=== PATIENT | male | born 1970 | race Caucasian/White ===

== ENCOUNTER → 2018-03-28 | Outpatient (CLI) | payer BC ==
--- NOTE | 2018-03-28 09:50 | XR ---
EXAMINATION TYPE: XR KUB DATE OF EXAM: 03/28/2018 COMPARISON: NONE HISTORY: Pain TECHNIQUE: One view abdominal series FINDINGS: The osseous structures are intact. The bowel gas pattern is nonspecific. Lung bases are clear. Find ings suggest a bone island involving the right femoral neck. Benign calcifications pelvis. Some of wh ich appear to be related to the prostate. IMPRESSION: 1. Nonspecific abdomen.
== END | disposition home or self-care (01) ==
LOC: RADXRMAIN 09:13
PROVIDERS: ATTEND Urology
DX: N23 Unspecified renal colic (principal)
CPT/HCPCS: 74018

== ENCOUNTER 2020-02-07 14:00 | Emergency (ER) | payer BC ==
[2020-02-07 14:30] VITALS: BP 154/113; PULSE 73; RESP 18; TEMP 98.1
[2020-02-07] MEDS ORDERED: DIPH,PERTUS(ACELL)TETVAC-LF 0.5 ML VIAL IM ONE (14:30)
[2020-02-07] MEDS ORDERED: LIDOCAINE 1% INJ 10MG/ML (20 ML MDV) SQ ONE (14:30)
[2020-02-07] MEDS ORDERED: GELATIN SPONGE,ABSORB (SMALL) 1 EACH SPONGE TOPICAL STA (14:37)
[2020-02-07] MEDS ORDERED: HYDROcodone/APAP 5-325MG 1 EACH TAB PO STA (14:38)
[2020-02-07] MEDS ORDERED: SODIUM CHLORIDE 0.9% IRRIG 1,000 ML BTL IRRIGATION STA (14:38)
--- NOTE | 2020-02-07 14:50 | ED ---
General Adult HPI - General Chief complaint: Wound/Laceration Stated complaint: Finger laceration Time Seen by Provider: 02/07/20 14:30 Source: patient, RN notes reviewed Mode of arrival: ambulatory Limitations: no limitations - History of Present Illness Initial comments: 49-year-old male presents to the emergency determine for a chief complaint of laceration. Patient was using a table saw when he cut his left index finger. Patient states he has previously cut the finger as well with a table saw. Patient states he didn't look at it but saw that there was blood so rest of the hospital. Patient states he was has numbness in that distal fingertip secondary to previous laceration. He denies any other injuries. Tetanus is not up-to-date.Patient has no other complaints at this time including shortness of breath, chest pain, abdominal pain, nausea or vomiting, headache, or visual changes. - Related Data Home Medications Medication Instructions Recorded Confirmed Ibuprofen [Motrin] 600 mg PO BID-W/MEALS PRN 10/17/15 10/17/15 diphenhydrAMINE [Benadryl] 25 mg PO HS PRN 10/17/15 10/17/15 Previous Rx's Medication Instructions Recorded Cephalexin [Keflex] 500 mg PO Q6HR 10 Days #40 cap 02/07/20 Allergies Allergy/AdvReac Type Severity Reaction Status Date / Time latex Allergy Rash/Hives Verified 02/07/20 14:29 prednisone AdvReac Confusion Verified 02/07/20 14:29 Review of Systems ROS Statement: Those systems with pertinent positive or pertinent negative responses have been documented in the HPI. ROS Other: All systems not noted in ROS Statement are negative. Past Medical History Past Medical History: No Reported History History of Any Multi-Drug Resistant Organisms: None Reported Past Surgical History: Adenoidectomy, Tonsillectomy Additional Past Surgical History / Comment(s): uvula removal, sinus surgery, cyst removed from fingers, vasectomy, Past Psychological History: No Psychological Hx Reported Smoking Status: Never smoker Past Alcohol Use History: None Reported Past Drug Use History: None Reported General Exam Limitations: no limitations General appearance: alert, in no apparent distress Head exam: Present: atraumatic, normocephalic, normal inspection Eye exam: Present: normal appearance, PERRL, EOMI. Absent: scleral icterus, conjunctival injection, periorbital swelling ENT exam: Present: normal exam, mucous membranes moist Neck exam: Present: normal inspection, full ROM. Absent: tenderness, meningismus, lymphadenopathy Respiratory exam: Present: normal lung sounds bilaterally. Absent: respiratory distress, wheezes, rales, rhonchi, stridor Cardiovascular Exam: Present: regular rate, normal rhythm, normal heart sounds. Absent: systolic murmur, diastolic murmur, rubs, gallop, clicks Extremities exam: Present: other (Superficial type laceration noted to the dorsum of the distal fingertip left second digit involving the nail. Capillary refill less than 2 seconds in his finger. Full range of motion. There is no suturing required.) Course Vital Signs 02/07/20 14:25 Temperature 98.1 F Pulse Rate 73 Respiratory 18 Rate Blood Pressure 154/113 O2 Sat by Pulse 97 Oximetry Medical Decision Making - Medical Decision Making X-ray shows small piece of Court x-ray been removed on the oblique view. Otherwise no acute osseous abnormality noted. Wound is more avulsion and then laceration. Gelfoam was applied after it was irrigated thoroughly with saline pressure irrigation. It was secured with Steri-Strips. Patient will follow-up with orthopedics and take antibiotics. He will return for any worsening symptoms. Disposition Clinical Impression: Laceration Disposition: HOME SELF-CARE Condition: Good Instructions (If sedation given, give patient instructions): Laceration (ED), Steristrips (ED) Additional Instructions: Please keep the area clean. Please keep area dry. After a 2-3 days you can cut the Steri-Strips and let the Gelfoam fall off on its own. If it does not come off soak it in water. Take antibiotics as directed. 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 Return to the emergency department for any worsening symptoms. Otherwise follow-up with primary care for possible open fracture Prescriptions: Cephalexin [Keflex] 500 mg PO Q6HR 10 Days #40 cap Is patient prescribed a controlled substance at d/c from ED?: No Referrals: Radha Solo MD [Primary Care Provider] - 1-2 days Estrellita Ramirez DO [Doctor of Osteopathic Medicine] - 1-2 days Time of Disposition: 15:33
--- NOTE | 2020-02-07 15:00 | XR ---
EXAMINATION TYPE: XR finger LT DATE OF EXAM: 02/07/2020 COMPARISON: None HISTORY: Laceration from table saw TECHNIQUE: Three-view left index finger FINDINGS: Tiny chip the distal tuft is not excluded. Soft tissue injury is evident at the distal inde x finger. Additional areas suspicious for fracture are not identified. Joint spaces are preserved. No radiopaqu e foreign bodies are identified. IMPRESSION: 1. On the oblique view small piece of cortex may have been removed at the soft tissue injury. Otherw ise, no acute osseous abnormality is identified.
[2020-02-07] MEDS ORDERED: CEPHALEXIN 500MG STARTER PACK 4 CAP BTL PO STA (15:33)
== END 2020-02-07 15:50 | disposition home or self-care (01) ==
LOC: EC 14:00
DX: S61.311A Laceration without foreign body of left index finger with damage to nail, initial encounter (principal); Z23 Encounter for immunization; Z91.040 Latex allergy status; Z88.8 Allergy status to other drugs, medicaments and biological substances; W31.2XXA Contact with powered woodworking and forming machines, initial encounter
CPT/HCPCS: 90471; 90715; 99283

== ENCOUNTER → 2021-03-03 | Outpatient (CLI) | payer BC ==
[2021-03-03 17:33] LABS: ALT 39 U/L (10-49); AST 28 U/L (14-35); African American GFR (CKD) 119.9 (60.0-200.0); Alkaline Phosphatase 75 U/L (41-126); Calcium 8.4 mg/dL (8.7-10.3); Carbon Dioxide 27.5 mmol/L (21.6-31.8); Chloride 108 mmol/L (96-109); Cholesterol 176 mg/dL (0-200); Glucose 158 mg/dL (70-110); LDL Cholesterol,Calculated 86.6 mg/dL (0.0-131.0); Non-African American GFR(CKD) 103.4 (60.0-200.0); Potassium 4.3 mmol/L (3.5-5.5); Rheumatoid Factor, Qnt <4 IU/mL (0-13); Sodium 142 mmol/L (135-145); Total Bilirubin 0.6 mg/dL (0.3-1.2); Total Protein 6.2 g/dL (6.2-8.2)
[2021-03-03 17:46] LABS: Basophils # (A) 0.05 X 10*3/uL (0.00-0.10); Basophils % (A) 1.2 %; Eosinophils # (A) 0.13 X 10*3/uL (0.04-0.35); HCT 45.9 % (39.6-50.0); HGB 15.2 g/dL (13.0-17.0); Lymphocytes # (A) 1.76 X 10*3/uL (0.90-5.00); Lymphocytes % (A) 40.6 %; MCH 30.8 pg (27.0-32.0); MCHC 33.1 g/dL (32.0-37.0); MCV 93.1 fL (80.0-97.0); Mean Platelet Volume 9.3 fL (9.5-12.2); Monocytes # (A) 0.51 X 10*3/uL (0.20-1.00); Monocytes % (A) 11.8 %; Neutrophils # (A) 1.87 X 10*3/uL (1.80-7.70); Neutrophils % (A) 43.2 %; Platelet Count 205 X 10*3/uL (140-440); RBC 4.93 X 10*6/uL (4.40-5.60); RDW 13.1 % (11.5-14.5); WBC 4.33 X 10*3/uL (4.50-10.00)
[2021-03-03 21:28] LABS: Hemoglobin A1C 5.8 % (4.0-6.0)
== END | disposition home or self-care (01) ==
LOC: LABWHC1 09:10
PROVIDERS: ATTEND Internal Medicine
DX: E78.5 Hyperlipidemia, unspecified (principal); I10 Essential (primary) hypertension
CPT/HCPCS: 36415; 80053; 80061; 83036; 84439; 84443; 85025; 86431

== ENCOUNTER → 2022-02-24 | Outpatient (CLI) | payer BC ==
[2022-02-24 16:20] LABS: ALT 46 U/L (10-49); AST 29 U/L (14-35); African American GFR (CKD) 95.2 (60.0-200.0); Albumin 4.7 g/dL (3.8-4.9); Albumin/Globulin Ratio 1.84 (1.60-3.17); Alkaline Phosphatase 88 U/L (41-126); BUN/Creat Ratio 19.52 Ratio (12.00-20.00); Blood Urea Nitrogen 20.3 mg/dL (9.0-27.0); Carbon Dioxide 22.9 mmol/L (20.0-27.5); Chloride 100 mmol/L (96-109); Chol/HDL Ratio 5.32 Ratio; Globulin 2.5 g/dL (1.6-3.3); Glucose 133 mg/dL (70-110); LDL Cholesterol,Calculated 111.6 mg/dL (0.0-131.0); Magnesium 2.2 mg/dL (1.5-2.4); Non-African American GFR(CKD) 82.2 (60.0-200.0); Potassium 4.1 mmol/L (3.5-5.5); Sodium 137 mmol/L (135-145); Total Protein 7.2 g/dL (6.2-8.2)
== END | disposition home or self-care (01) ==
LOC: LABWHC1 10:33
PROVIDERS: ATTEND Internal Medicine Interventional Cardiology
DX: I10 Essential (primary) hypertension (principal); E78.2 Mixed hyperlipidemia
CPT/HCPCS: 36415; 80053; 80061; 83735; 84443

== ENCOUNTER → 2024-09-25 | Outpatient (CLI) | payer OTHER ==
--- NOTE | 2024-09-26 08:32 | CT ---
EXAMINATION TYPE: CT sinus wo con DATE OF EXAM: 09/25/2024 5:13 PM COMPARISON: None. CLINICAL INDICATION: Male, 54 years old with history of J01.11 ACUTE RECURRENT FRONTAL SINUSITIS, Sandrita athing and sinus issues x6 months. TECHNIQUE: The paranasal sinuses are examined in the axial plane at 2 mm thick sections. Reconstruct ed images in the coronal plane were obtained. Contrast used: mL of , (none if empty) Oral contrast used: (none if empty) CT DLP: 220 mGycm, Automated exposure control for dose reduction was used. FINDINGS: Air-fluid levels are within the bilateral maxillary sinuses. There is opacification through the ethmo id air cells. Air-fluid levels are within the sphenoid sinuses mucosal thickening and air-fluid level s are within the frontal sinuses. The septum is evaluated. There is septal deviation to the right. The ostiomeatal units are obstructed Mastoid air cells within the field of view are clear. IMPRESSION: 1. Multiple air-fluid levels and opacification throughout the paranasal sinuses. Correlate for pansi nusitis [facility], Workstation: [facility], 09/26/2024 8:30 AM
== END | disposition home or self-care (01) ==
LOC: RADCTMAIN 16:43
PROVIDERS: ATTEND Internal Medicine
DX: J01.11 Acute recurrent frontal sinusitis (principal); R91.8 Other nonspecific abnormal finding of lung field
CPT/HCPCS: 70486

== ENCOUNTER 2024-10-06 07:50 | Day surgery (SDC) | payer BC, OTHER ==
[2024-09-29 08:50] VITALS: BMI 36.3
[2024-10-06 08:13] VITALS: TEMP 97.6
[2024-10-06] MEDS: LACTATED RINGERS 1,000 ML IV SCH (08:19)
[2024-10-06] MEDS: IV FLUID CONTINUATION 1,000 ML IV ONE (08:19)
[2024-10-06] MEDS ORDERED: PROPOFOL 10 MG/ML 20 ML VIAL IV ONE (08:46)
--- NOTE | 2024-10-06 08:59 | P.PCN ---
Date of Procedure: 10/06/24 Procedure(s) Performed: BRIEF HISTORY: Patient is a 54-year-old pleasant white male scheduled for an elective colonoscopy as a part of screening for colon cancer. PROCEDURE PERFORMED: Colonoscopy. PREOPERATIVE DIAGNOSIS: Screening for colon cancer. IV sedation per Anesthesia. PROCEDURE: After informed consent was obtained, the patient, was brought into the endoscopy unit. IV sedation was administered by Anesthesia under continuous monitoring. Digital rectal examination was normal. Initially the Olympus CF-160 flexible video colonoscope was then inserted in the rectum, gradually advanced into the cecum without any difficulty. Careful examination was performed as the scope was gradually being withdrawn. Ileocecal valve and the appendiceal orifice were visualized and appeared normal. Prep was excellent. Mucosa of the cecum, ascending colon, transverse colon, descending colon, sigmoid colon, and rectum appeared normal. Retroflexion was performed in the rectum and no lesions were seen. The patient tolerated the procedure well. IMPRESSION: Normal-appearing colon from rectum to cecum no evidence of colorectal neoplasia. RECOMMENDATIONS: Findings of this examination were discussed with the patient as well as his family.. He was advised to have repeat screening colonoscopy in 10 years.
[2024-10-06 09:07] VITALS: RESP 16
[2024-10-06 09:22] VITALS: BP 138/91; PULSE 62
== END 2024-10-06 09:34 | disposition home or self-care (01) ==
LOC: ORWHC2ENDO 07:50
PROVIDERS: ATTEND Internal Medicine Gastroenterology
DX: Z12.11 Encounter for screening for malignant neoplasm of colon (principal)
CPT/HCPCS: 45378; J2704

== ENCOUNTER → 2024-11-03 | Outpatient (CLI) | payer OTHER ==
[2024-11-03 10:52] LABS: Basophils # (A) 0.1 k/uL (0-0.2); Basophils % (A) 1 %; Eosinophils # (A) 0.2 k/uL (0-0.7); Eosinophils % (A) 5 %; HCT 44.5 % (39.0-53.0); HGB 14.3 gm/dL (13.0-17.5); Lymphocytes # (A) 1.4 k/uL (1.0-4.8); Lymphocytes % (A) 29 %; MCH 30.4 pg (25.0-35.0); MCHC 32.1 g/dL (31.0-37.0); MCV 94.5 fL (80.0-100.0); Mean Platelet Volume 6.7; Monocytes # (A) 0.4 k/uL (0-1.0); Monocytes % (A) 9 %; Neutrophils # (A) 2.5 k/uL (1.3-7.7); Neutrophils % (A) 53 %; Platelet Count 243 k/uL (150-450); RBC 4.71 m/uL (4.30-5.90); RDW 13.4 % (11.5-15.5); WBC 4.7 k/uL (3.8-10.6)
[2024-11-03 11:11] LABS: Total Eosinophil Count 226 #EOS/uL (150-300)
[2024-11-03 19:41] LABS: Alternaria alternata IgE <0.10 kU/L; Aspergillus fumagatus IgE <0.10 kU/L; Cat Epith & Dander IgE 7.17 kU/L; Cladosporian herbarum IgE <0.10 kU/L; Cockroach IgE 0.28 kU/L; Dog Dander IgE 0.81 kU/L; Elm IgE 0.74 kU/L; Maple (Box Elder) IgE 1.26 kU/L; Oak IgE 1.29 kU/L; Ragweed,Common IgE 4.41 kU/L
== END | disposition home or self-care (01) ==
LOC: LABWHC1 10:07
PROVIDERS: ATTEND Internal Medicine
DX: J45.20 Mild intermittent asthma, uncomplicated (principal)
CPT/HCPCS: 36415; 82785; 85008; 85025; 86003

== ENCOUNTER 2024-12-09 08:48 | Day surgery (SDC) | payer OTHER ==
[2024-12-07 10:55] VITALS: BMI 36.5
[~2024-12-09 08:48] MED LIST: LIDOCAINE 1% (10MG/ML) FOR IV START INTRADERMA PRN; droPERidol 2.5 MG/ML VIAL IVP ONE
[2024-12-09] MEDS: IV FLUID CONTINUATION 1,000 ML IV ONE ×2 (09:11→12:12)
[2024-12-09] MEDS: FAMOTIDINE 20 MG/2 ML VIAL IV PRN (09:32)
[2024-12-09] MEDS: ONDANSETRON 4 MG/2 ML VIAL IVP ONE (09:32)
[2024-12-09] MEDS: LACTATED RINGERS 1,000 ML IV SCH (09:32)
[2024-12-09] MEDS: OXYMETAZOLINE 0.05% NASL SPRAY 1 SPRAY BOTTLE EA NOSTRIL PRN (09:33)
[2024-12-09] MEDS: DEXAMETHASONE SOD PHOSPHATE 4 MG/ML 1 ML VIAL IV ONE (09:33)
[2024-12-09] MEDS ORDERED: ePHEDrine 50 MG/ML 1 ML VIAL ONE (09:45)
[2024-12-09] MEDS ORDERED: ALBUTEROL HFA INHALER INHALATION ONE (09:45)
[2024-12-09] MEDS ORDERED: PROPOFOL 10 MG/ML 20 ML VIAL IV ONE (09:45)
[2024-12-09] MEDS ORDERED: SUCCINYLCHOLINE CHLORIDE 200 MG/10 ML VIAL IV ONE (09:45)
[2024-12-09] MEDS ORDERED: MIDAZOLAM 2 MG/2 ML VIAL ONE (09:45)
[2024-12-09] MEDS ORDERED: LIDOCAINE 1% INJ 10MG/ML (20 ML MDV) ONE (09:45)
[2024-12-09] MEDS ORDERED: PHENYLEPHRINE 10 MG/ML VIAL ONE (09:45)
[2024-12-09] MEDS ORDERED: fentaNYL (PF) 50 MCG/ML 2 ML AMP ONE (09:45)
[2024-12-09] MEDS: ceFAZolin 3 GM in SODIUM CHLORIDE 0.9% 100 ML IVPB PRN (09:48)
[2024-12-09] MEDS: LIDOCAINE 1%-EPI 1:100,000 20 ML VIAL SQ ONE (10:00)
--- NOTE | 2024-12-09 11:02 | P.OP ---
Date of Procedure: 12/09/24 Preoperative Diagnosis: chronic sinusitis Inferior turbinate hypertrophy Deviated septum Postoperative Diagnosis: same Procedure(s) Performed: septoplasty Outfracture and submucous resection inferior turbinates Bilateral endoscopic sinus surgery including bilateral maxillary antrostomy with removal of tissue from the maxillary sinuses, bilateral anterior posterior ethmoidectomy with sphenoidotomy and exploration and bilateral frontal sinusotomy with exploration Anesthesia: OLU Surgeon: Raphael Foss Estimated Blood Loss (ml): 10 Pathology: other (sinus contents) Condition: stable Disposition: PACU Indications for Procedure: is a 54-year-old white male whose had difficulties with chronic and recurrent sinusitis for several months with only brief improvement with antibiotic and steroids- CT showed diffuse chronic sinusitis Operative Findings: nasal septum deviated to the right with inferior turbinate hypertrophy bilaterally. There was extensive inflammation throughout the sinuses with purulence in both maxillary sinuses mainly the left which was cultured ostium to complexes were completely obstructed. There was mucosal thickening throughout the ethmoid sinuses and more mildly in the frontal and sphenoid sinuses Description of Procedure: The patient was brought into the operative suite and placed in a supine position. The patient underwent induction of general anesthesia with oral endotracheal intubation without difficulty. The patient was prepped and draped in the usual aseptic fashion with the orbits in the operating field for monitoring to the case and the computed tomography scan was on the computer screen for review throughout the case. 1% lidocaine with 1 :100,000 epinephrine was infused submucosally into both sides of the nasal septum as well as the lateral nasal wall and anterior tips of the middle turbinates. While this was taking vasoconstrictive effect the inferior turbinates were infractured with [place] elevator and partial submucous resection of the inferior turbinates was performed with a portion of the submucosal soft tissue and the inferior turbinate bone removed with Coblation device. The inferior turbinates were then outfractured with the [place] elevator. A left hemitransfixion incision was then made with the mucoperichondrial and mucoperiosteal flap on the left elevated. The bony cartilaginous junction was disarticulated and the mucoperiosteal flap on the right was elevated. Bony nasal septal deformities were removed with [place]kay forceps and an inferior cartilaginous strip was removed leaving a full 1.5 cm caudal strut. Checking intranasally this corrected the nasoseptal deformities and the hemitransfixion incision was closed with a running 4-0 chromic suture. Full 0° endoscopic examination is performed bilaterally. Beginning on the left, the middle turbinate was medialized. The maxillary ostium was located with a ballpoint probe and an infundibulotomy was performed followed by uncinectomy. The maxillary antrostomy was enlarged at the expense of the anterior and posterior fontanelle taking care anteriorly not to injure the lacrimal bone. The maxillary sinus was evaluated with 30 and 70° endoscope .[Abnormal appearing tissue was removed from the maxillary sinus]. Anterior and posterior ethmoidectomy were then performed from anterior to posterior to the level of the skull base. The roof of the anterior ethmoid air cells were then cleaned from posterior to anterior using up-biting Blakesley forceps. the frontal sinus was then opened with frontal sinusotomy utilizing 30 and 70 endoscope with curved suction and giraffe forceps. The frontal sinus was then explored with 30° endoscope.[Abnormal tissue was removed from the frontal sinus]. sphenoidotomy was then performed under 0 endoscopic evaluation and straight suction and straight Blakesley forceps The sphenoid sinus was then explored with 0° endoscope.[Abnormal tissue was removed from the sphenoid sinus]. Attention was then turned to the right where the procedures were followed as they had been on the leftincluding medialization middle turbinate infundibulotomy uncinectomy and maxillary antrostomy with removal of tissue from the maxillary sinus anterior posterior ethmoidectomy also frontal sinusotomy with exploration and sphenoidotomy with exploration [Nasopore nasal dressing was placed in the middle meatus bilaterally under direct visualization]. Bilateral Melendez airway splints coated with bacitracin ointment were placed and sutured transseptally with a 4-0 nylon suture. The patient was suctioned in oral gastric fashion and was allowed to emerge from general anesthesia having tolerated procedure well and was extubated in the operating suite and transferred to the postoperative recovery area in satisfactory condition.
[2024-12-09 11:16] VITALS: TEMP 96.4
[2024-12-09] MEDS: HYDROmorphone 0.5 MG/0.5 ML SYRINGE IVP PRN (11:34)
[2024-12-09] MEDS: LABETALOL SYRINGE 5 MG/ML (4 ML SYR) IVP STA (11:46)
[2024-12-09] MEDS: HYDROcodone/APAP 5-325MG 1 EACH TAB PO ONE (13:44)
[2024-12-09] MEDS: LABETALOL 5 MG/ML VIAL MDV IVP ONE (13:44)
[2024-12-09] MEDS: hydrALAZINE HCL 20 MG/ML 1 ML VIAL IVP ONE (14:35)
[2024-12-09 14:42] VITALS: RESP 16
[2024-12-09 15:06] VITALS: BP 154/94; PULSE 70
== END 2024-12-09 15:15 | disposition home or self-care (01) ==
LOC: OR 08:48
PROVIDERS: ATTEND Otolaryngology
DX: J34.2 Deviated nasal septum (principal); J34.3 Hypertrophy of nasal turbinates; J32.4 Chronic pansinusitis; I10 Essential (primary) hypertension
CPT/HCPCS: 87070; 87205; 87075; 30520; 31267; 31276; 30140; 31287; J2250; J0330; J0360; J1100; J0690; J2405; J2003; J3010; J3490; J2704; J1171; J2371; J1920 ×2; 88300; 88305